=== PATIENT | male | born 1965 | race Caucasian/White ===

== ENCOUNTER → 2017-06-29 | Outpatient (CLI) | payer MEDICARE ==
--- NOTE | 2017-06-29 16:55 | Diagnostic Imaging Report ---
PROCEDURE: MRI lumbar spine. TECHNIQUE: Multiplanar, multisequence MRI of the lumbar spine was performed without contrast. INDICATION: Back pain. FINDINGS: There is minimal retrolisthesis of L5 over S1; otherwise, the alignment at the posterior spinal line is satisfactory. The vertebral body heights are preserved. There is moderate disc height loss at L5/S1. Mild disc height loss at L3/4 and L4/5 levels is also seen. The bone marrow signal is fairly homogeneous. Minimal edema adjacent to the endplates of L4/5 posteriorly is reactive to disc disease. There is disc desiccation at the lower lumbar spine levels. The cauda equina and conus medullaris appear grossly unremarkable. T11/12 demonstrates a diffuse disc bulge, asymmetric to the right side with no significant spinal canal stenosis. There is moderate foraminal stenosis on the right side at this level and no significant foraminal stenosis on the left. This is related to asymmetric right facet joint hypertrophy at this level. T12/L1: There is a diffuse disc bulge with no significant spinal canal or foraminal stenosis. L1/2: There is no disc herniation. There is mild facet hypertrophy. No central canal, lateral recess, or foraminal stenosis. L2/3: There is no disc herniation. There is vyxj-rb-novmdznm facet hypertrophy. No central canal or lateral recess stenosis. There is no foraminal narrowing. L3/4: There is mild disc bulge with caudal migration of superimposed protrusion posteriorly. There is bijr-be-dojquvny facet hypertrophy bilaterally. No significant central canal stenosis. There is, however, bilateral lateral recess stenosis, moderate on the left and mild on the right side. The foramina demonstrate mild stenosis bilaterally. L4/5: There is a diffuse disc bulge and bilateral zvaqtkgi-db-fcbdrx facet hypertrophy. No significant central canal stenosis. There is bilateral lateral recess stenosis of moderate degree bilaterally abutting the descending L5 nerve roots. The foramina demonstrate moderate stenosis on both sides. L5/S1: There is grade 1 retrolisthesis and prominent disc height loss at this level with a large broad-based left posterolateral disc protrusion that severely compresses the left lateral recess. There is minimal central canal stenosis at this level and meatcdcc-lv-jvhpzh right lateral recess stenosis. There is compression of the descending left S1 nerve root. The foramina demonstrate xrhqykkp-nd-nbvqxd stenosis on the left and moderate stenosis on the right side. IMPRESSION: There is a broad-based left posterolateral disc protrusion at L5/S1 compressing the descending left S1 nerve root within the left lateral recess. The right lateral recess demonstrates ilbqnsfu-rj-lhybry stenosis abutting the descending right S1 nerve root. Other findings as described above. Dictated by: Dictated on workstation # [id number]
== END ==
LOC: RAD 15:26
PROVIDERS: ATTEND Nurse Practitioner Family
DX: M48.07 Spinal stenosis, lumbosacral region; M51.17 Intervertebral disc disorders with radiculopathy, lumbosacral region
CPT/HCPCS: 72148

== ENCOUNTER → 2022-01-11 | Outpatient (CLI) | payer MEDICARE ==
[~2022-01-11] MED LIST: CATHETER FLUSH 10 ML SYR IV PRN; HOLD METFORMIN - RECEIVED CONTRAST 20 ML VIAL IV SCH; IOHEXOL 350 MG/ML 100 ML (OMNIPAQUE 350) VIAL IV ONE; MELO15TA14 PO; NS 100 ML (IVPB) BAG IV ONE; OXYC1TAB16 PO; PANT40SU PO; PRED10TA22 PO
--- NOTE | 2022-01-11 19:00 | Diagnostic Imaging Report ---
INDICATION: Carotid stenosis. COMPARISON: I have no relevant comparison. FINDINGS: The aortic arch patent and nonaneurysmal. The branching pattern of the great vessels was normal. Cervical vertebral arteries patent and codominant. The intradural vertebral arteries and the basilar and the visualized proximal steel wheel engraver unremarkable. There is focal soft and hard plaque in the left carotid bulb and bifurcation extending into the proximal left ICA where there is hemodynamically significant stenosis at the ICA origin of at least 80%. This disease a short segmental and beyond that level the left internal carotid is widely patent and nonfocal. Mixed soft and hard plaque result in moderate 50% stenosis of the proximal left external carotid. On the right side, there is only mild mixed soft and hard plaque at the carotid bulb and bifurcation without hemodynamically significant common, internal or external carotid stenosis. The visualized intracranial ICAs patent. The A1 segments, the ACOM, the proximal anterior cerebral arteries and the proximal middle cerebral arteries appeared well opacified and patent. IMPRESSION: 1. Hemodynamically significant likely at least 80% short segmental stenosis of the origin of the left internal carotid owing to soft and hard plaque. 2. More mild right-sided carotid atherosclerosis without stenosis. 3. Widely patent codominant vertebral basilar system. Dictated by: Dictated on workstation # [id number]
== END ==
LOC: CARD 13:36
PROVIDERS: ATTEND Internal Medicine Cardiovascular Disease
DX: I65.23 Occlusion and stenosis of bilateral carotid arteries (principal); I10 Essential (primary) hypertension; I25.10 Atherosclerotic heart disease of native coronary artery without angina pectoris
CPT/HCPCS: 70498; 93306

== ENCOUNTER → 2022-01-20 | Outpatient (CLI) | payer MEDICARE ==
[~2022-01-20] MED LIST changes: -CATHETER FLUSH 10 ML SYR IV PRN; +CATHETER FLUSH 10 ML SYR IVP PRN; -HOLD METFORMIN - RECEIVED CONTRAST 20 ML VIAL IV SCH; -IOHEXOL 350 MG/ML 100 ML (OMNIPAQUE 350) VIAL IV ONE; -NS 100 ML (IVPB) BAG IV ONE
[2022-01-20 13:17] VITALS: BP 127/63
--- NOTE | 2022-01-20 14:56 | Cardiology Stress Test Report ---
Stress Test Report Date of Procedure/Referring: Date of Procedure: Jan 20, 2022 PCP Francisco Quick MD Admitting Physician No,Local Physician Indications: CP Baseline Heart Rate: 83 Baseline Blood Pressure: Blood Pressure Systolic: 127 Blood Pressure Diastolic: 63 Vital Signs Date Time Temp Pulse Resp B/P (MAP) Pulse Ox O2 Delivery O2 Flow Rate FiO2 01/20/22 13:17 83 127/63 (84) Baseline Vital Signs Vital Signs Date Time Temp Pulse Resp B/P (MAP) Pulse Ox O2 Delivery O2 Flow Rate FiO2 01/20/22 13:17 83 127/63 (84) Baseline EKG: Baseline EKG: NSR Summary: After explaining the procedure and details to the patient, he signed the consent and was brought to the stress nuclear laboratory. Patient exercised on standard Anthony protocol, EKG, heart rate and blood pressure were monitored continuously, resting and stress doses of radio tracer were injected, imaging was acquired and reviewed in the short axis, horizontal long axis and vertical long axis views Patient was able to exercise for a total of 6 minutes on Anthony protocol, METs 7.1 Maximum heart rate 135 Maximum blood pressure 181/85 Stress EKG, Minimal nondiagnostic changes Recovery EKG, Return to baseline TID: 1.12 SSS: 25 SDS: 11 EF: 47 Conclusion: 1. Fair exercise tolerance for a total of 6 minutes on standard Anthony protocol, 7.1 METS achieving 83% of maximal expected heart rate 2. Baseline EKG abnormality with nonspecific T wave abnormality. Had nondiagnostic EKG changes with [address] depression in lead II, 3, aVF, [address] depression in V5, V6. 3. Reversible ischemia involving the whole inferior wall inferolateral wall inferolateral apex, true apex, anterior apex. 4. Normal left ventricular size with mild diffuse hypokinesia, ejection fraction 47% FRANCISCO QUICK MD Jan 20, 2022 14:56
== END ==
LOC: CARD 01-18 07:45
PROVIDERS: ATTEND Internal Medicine Cardiovascular Disease
DX: R07.9 Chest pain, unspecified (principal); I10 Essential (primary) hypertension
CPT/HCPCS: 78452; 93017; A9502

== ENCOUNTER 2022-02-03 09:00 | Day surgery (SDC) | payer MEDICARE ==
[2022-02-03] VITALS (10 sets, daily range): BP systolic 95–123; BP diastolic 60–81
[~2022-02-03] VITALS: Ht 162.6 cm; Wt 92.3 kg
[2022-02-03 07:34] LABS: HEMATOCRIT 43 % (40-54); HEMOGLOBIN 13.8 g/dL (13.3-17.7); MEAN CORPUSCULAR HEMOGLOBIN 31 pg (25-34); MEAN CORPUSCULAR HGB CONC 32 g/dL (32-36); MEAN CORPUSCULAR VOLUME 97 fL (80-99); MEAN PLATELET VOLUME 10.2 fL (9.0-12.2); PLATELET COUNT 321 10^3/uL (130-400); WHITE BLOOD COUNT 12.7 10^3/uL (4.3-11.0)
[2022-02-03 07:35] LABS: BILIRUBIN,URINE NEGATIVE (NEGATIVE); CLARITY,URINE CLEAR; COLOR,URINE YELLOW; GLUCOSE, URINE (UA) NEGATIVE (NEGATIVE); KETONES,URINE NEGATIVE (NEGATIVE); LEUKOCYTE ESTERASE ,URINE NEGATIVE (NEGATIVE); NITRITE,URINE NEGATIVE (NEGATIVE); PH,URINE 5.5 (5-9); PROTEIN,URINE NEGATIVE (NEGATIVE)
[2022-02-03 07:42] LABS: ALBUMIN 4.1 GM/DL (3.2-4.5); POTASSIUM 4.8 MMOL/L (3.6-5.0)
[2022-02-03 07:43] LABS: CALCIUM 9.8 MG/DL (8.5-10.1)
[2022-02-03 07:44] LABS: TOTAL PROTEIN 7.3 GM/DL (6.4-8.2)
--- NOTE | 2022-02-03 07:45 | Diagnostic Imaging Report ---
INDICATION: Respiratory distress. FINDINGS: Lungs are clear. No failure, effusion or pneumothorax. IMPRESSION: No acute appearing abnormality. Dictated by: Dictated on workstation # [id number]
[2022-02-03 07:46] LABS: BILIRUBIN,TOTAL 0.2 MG/DL (0.1-1.0); INR 0.9 (0.8-1.4); PROTHROMBIN TIME PATIENT 12.7 SEC (12.2-14.7)
[2022-02-03 07:48] LABS: CREATININE SERUM 0.81 MG/DL (0.60-1.30)
[2022-02-03 08:14] LABS: BACTERIA,URINE NEGATIVE /HPF; WBC,URINE RARE /HPF
[2022-02-03 08:15] LABS: AMORPHOUS SEDIMENT,UR FEW AMOR URATES /LPF
[~2022-02-03 09:00] MED LIST changes: +ATOR80TA76 PO; -CATHETER FLUSH 10 ML SYR IVP PRN; +CLN.1T PO; +EZET10TA49 PO; +FENO54TA PO; +GABA600T PO; +HEParin (CATH LAB) 2,000 ML IV ONE; +HYDR-3820 PO; +IBUP-1780 PO; +LIDOCAINE 1% INJ 20 ML VIAL ONE; +LISI40TA9 PO; +NS IV 1000 ML 1,000 ML IV SCH; +NS IV 1000 ML 1,000 ML ONE; +OMG1KC PO; +PANT40TA52 PO
[2022-02-03] MEDS ORDERED: MIDAZOLAM 5 MG/5 ML (VERSED) VIAL ONE (09:02)
[2022-02-03] MEDS ORDERED: NITRO DRIP 25000 MCG/D5W 250 ML IV ONE (09:02)
[2022-02-03] MEDS ORDERED: fentaNYL INJ 100 MCG/2 ML AMP ONE (09:02)
[2022-02-03] MEDS ORDERED: HEParin 1000 UNIT/ML (10ML VIAL) FOR BOLUS ONE (09:02)
[2022-02-03] MEDS ORDERED: VERAPAMIL 5 MG/2 ML (CALAN) VIAL IV ONE (09:02)
--- NOTE | 2022-02-03 09:27 | Discharge Inst-Post CATH ---
Discharge Inst-CATH/EP Problems Reviewed?: Yes Post Cardiac Cath/EP D/C Inst Follow Up/Plan Appointment with Dr. Quick's office in 1 month <b>CARDIAC CATH/EP PROCEDURE DISCHARGE INSTRUCTIONS</b> ACTIVITY * Go Home directly and rest. * Limit activity of the leg (or wrist if it was used) for 7 days including aerobics, swimming, jogging, bicycling, etc. * Restrict stair-climbing for 7 days if possible, if not, climb up with your non-cath leg, then bring together on the same step. * Avoid lifting, pushing, pulling or excessive movement of the affected extremity for 7 days. * Customary sexual activity may be resumed after 2 days-use caution not to use a position that strains or causes pain to the affected extremity. * No driving for 24 hours. * NO SMOKING. * Avoid straining for bowel movements for 7 days. * Gentle walking on level ground is allowed. * Returning to work will depend on the type of procedure and the results. Your doctor will discuss this with you. CALL YOUR DOCTOR FOR ANY OF THE FOLLOWING: *If bleeding from the puncture site occurs- Apply gentle pressure to site with clean cloth and call your doctor or EMS. * If a knot or lump forms under the skin, increases in size, or causes pain. * If bruising appears to be worsening or moving further down your leg instead of disappearing. * Temperature above 101 F. CARE OF YOUR GROIN INCISION; * Bruising or purple discoloration of the skin near the puncture site is common. * You may shower only, no bathtub bathing for 5 days. Be careful to avoid slipping as your leg may feel stiff. * If a closure device was used on your femoral artery, please see the attached guide regarding care of the device and your leg. * Leave dressing on FOR 24 hours. CARE OF YOUR WRIST INCISION; * Bruising or purple discoloration of the skin near the puncture site is common. * You may shower. * DO NOT submerge wrist. * Leave dressing on FOR 24 hours. FRANCISCO QUICK MD February 03, 2022 09:27
[2022-02-03] MEDS ORDERED: NS IV 1000 ML 1,000 ML IV SCH (09:30)
--- NOTE | 2022-02-03 09:33 | Cardiac Cath Report ---
Cardiac Cath Report Physician (s)/Material Coordinator (s) Physician FRANCISCO FREIRE MD Pre-Procedure Diagnosis Pre-Procedure Diagnosis: Coronary artery disease, aortic valve stenosis Post-Procedure Note Procedure Start Date: February 03, 2022 Name of Procedure: Coronary angiogram Aortic arch angiogram Findings/Procedure Note PROCEDURE NOTE: 56-year-old gentleman with severe aortic valve stenosis, probably bicuspid aortic valve. Had an abnormal stress test, scheduled for cardiac catheterization possible PTCA. After explaining the procedure to the patient, all pros and cons were explained, all questions were answered. The patient signed the consent and then he was placed on the cardiac catheterization laboratory. Groin was prepped SL fashion local anesthesia was used. Sheath placed in the right radial artery, [place] catheter was advanced to the coronary system and engage the right and left coronary artery, angiogram was done. Then pulled to the aortic arch. An aortic arch angiogram was done At the end of the procedure the sheath was removed. Vascular band was used FINDINGS: Hemodynamics LV was not measured, aortic valve was not crossed Aorta 79/51 mean of 67 ANATOMY: Left Main is free of obstructive disease Left Anterior Descending has diffuse ectasia with mild to moderate disease Left Circumflex has diffuse ectasia with mild disease Right Coronary Artery is nondominant artery with severe stenosis in 2 segment in the mid right coronary artery Aorta evaluation done with aortic arch angiogram showing normal aortic arch in size, no dissection or aneurysm, normal origin of the brachiocephalic artery, left carotid and left subclavian arteries. CONCLUSION: 1. Severe stenosis in small to moderate size nondominant right coronary artery at 2 segments. 2. Diffuse coronary ectasia with mild to moderate disease in the left coronary system. 3. Normal aortic arch with no significant abnormality 4. Patient is known to have severe aortic valve stenosis DISCUSSION AND RECOMMENDATION: I will discuss with the patient and the thoracic surgeon regarding possibility of stenting of the right coronary artery versus performing bypass surgery and aortic valve replacement at the same time. Anesthesia Type: Conscious Sedation Estimated blood loss (mL): 10 ml Contrast Amount: 50 ml Total Radiation Dose: 417 mGy Post-Procedure Diagnosis Post-operative diagnosis: Aortic valve stenosis Coronary artery disease Hypertension Hyperlipidemia FRANCISCO FREIRE MD February 03, 2022 09:32
--- NOTE | 2022-02-03 09:44 | Conscious Sedation/ASA ---
Conscious Sedation Pre-Proced Time 09:43 ASA Score 3 For ASA 3 and 4: Consider anesthesia and medical clearance. Also, for patients with a history of failed moderate sedation consider anesthesia. Airway Lungs Heart ASA score ASA 1: a normal healthy patient ASA 2: a patient with a mild systemic disease (mid diabetes, controlled hypertension, obesity x ASA 3: a patient with a severe systemic disease that limits activity (angina, COPD, prior Myocardial infarction) ASA 4: a patient with an incapacitating disease that is a constant threat to life (CHF, renal failure) ASA 5: a moribund patient not expected to survive 24 hrs. (ruptured aneurysm) ASA 6: a declared brain- patient whose organs are being harvested. For emergent operations, add the letter E after the classification Mallampati Classification Grade 3 Sedation Plan Analgesia, Amnesia, Plan communicated to team members, Discussed options with patient/fam, Discussed risks with patient/fam The patient is an appropriate candidate to undergo the planned procedure, sedation, and anesthesia. The patient immediately re-assessed prior to indication. FRANCISCO FREIRE MD February 03, 2022 09:44
== END 2022-02-03 12:05 | disposition home or self-care (01) ==
LOC: CATH 09:00 → SDC 09:42 → CATH 12:05
PROVIDERS: ATTEND Internal Medicine Cardiovascular Disease
DX: I25.10 Atherosclerotic heart disease of native coronary artery without angina pectoris (principal); I35.0 Nonrheumatic aortic (valve) stenosis; I11.9 Hypertensive heart disease without heart failure; I65.23 Occlusion and stenosis of bilateral carotid arteries; E78.2 Mixed hyperlipidemia; E78.5 Hyperlipidemia, unspecified; M62.89 Other specified disorders of muscle; M25.50 Pain in unspecified joint; F17.210 Nicotine dependence, cigarettes, uncomplicated; Z79.899 Other long term (current) drug therapy
CPT/HCPCS: 36221; 71045; 80053; 80061; 81000; 85027; 85610; 85730; 87081; 93005; 93454; C1894; 36415

== ENCOUNTER → 2022-02-24 | Outpatient (CLI) | payer MEDICARE ==
[~2022-02-24] MED LIST changes: -HEParin (CATH LAB) 2,000 ML IV ONE; -LIDOCAINE 1% INJ 20 ML VIAL ONE; -NS IV 1000 ML 1,000 ML IV SCH; -NS IV 1000 ML 1,000 ML ONE; +RT-ALBUTEROL SULF 2.5 MG/3 ML PRE-MIX VIAL INH ONE
[2022-02-24 09:34] LABS: ABG OXYGEN SATURATION 96 % (94-100); ABG PCO2 47 MMHG (35-45); ABG PH 7.35 (7.37-7.43); ABG PO2 79 MMHG (79-93); ABG TCO2 26.4 MMOL/L (21.0-31.0)
[2022-02-24 09:36] LABS: ALLENS TEST YES-POS; INSPIRED O2 RA; PATIENT TEMP 98.7; VENTILATOR NO
== END ==
LOC: RT 09:15
PROVIDERS: ATTEND Nurse Practitioner
DX: Z01.810 Encounter for preprocedural cardiovascular examination (principal); I65.23 Occlusion and stenosis of bilateral carotid arteries; I35.0 Nonrheumatic aortic (valve) stenosis; I25.10 Atherosclerotic heart disease of native coronary artery without angina pectoris
CPT/HCPCS: 36600; 82805; 94060; 94621; 94726; 94729

== ENCOUNTER 2022-03-30 14:21 | Emergency (ER) | payer MEDICARE ==
[~2022-03-30 14:21] MED LIST changes: -RT-ALBUTEROL SULF 2.5 MG/3 ML PRE-MIX VIAL INH ONE
[2022-03-30] MEDS ORDERED: ORPHENADRINE 60 MG/2 ML (NORFLEX) AMP (ED ONLY) IM ONE (15:00)
[2022-03-30] MEDS ORDERED: fentaNYL INJ 100 MCG/2 ML AMP IM ONE (15:00)
--- NOTE | 2022-03-30 15:01 | ED Back Pain ---
General Chief Complaint: Back Problems Stated Complaint: R LEG PAIN Nursing Triage Note: PT AMB TO [facility] 5 WITH C/O LOW BACK PAIN THAT RADIATES TO HIS R LEG FOR APPROX 1 WEEK NOW Source of Information: Patient Exam Limitations: No Limitations History of Present Illness Date Seen by Provider: Mar 30, 2022 Time Seen by Provider: 15:01 Allergies and Home Medications Allergies Coded Allergies: No Known Drug Allergies (Unverified , 12/31/21) Patient Home Medication List Atorvastatin Calcium (Atorvastatin Calcium) 80 Mg Tablet, 80 MG PO DAILY, (Reported) Entered as Reported by: SANGEETA LAI on 02/03/22842 Clonidine HCl (Clonidine HCl) 0.1 Mg Tablet, 0.1 MG PO DAILY PRN for BLOOD PRESSURE, (Reported) Entered as Reported by: SANGEETA LAI on 02/03/22842 Ezetimibe (Ezetimibe) 10 Mg Tablet, 10 MG PO DAILY, (Reported) Entered as Reported by: SANGEETA LAI on 02/03/22842 Fenofibrate (Fenofibrate) 54 Mg Tablet, 54 MG PO DAILY, (Reported) Entered as Reported by: SANGEETA LAI on 02/03/22842 Gabapentin (Neurontin) 600 Mg Tablet, 1,800 MG PO TID, (Reported) Entered as Reported by: SANGEETA LAI on 02/03/22842 Hydrocodone/Acetaminophen (Hydrocodone-Acetamin 10-325 mg) 10 Mg-325 Mg Tablet, 1 EACH PO TID PRN for PAIN-MODERATE (5-7), (Reported) Entered as Reported by: SANGEETA ALI on 02/03/22842 Ibuprofen (Ibuprofen) 800 Mg Tablet, 800 MG PO Q8H PRN for PAIN-MILD, (Reported) Entered as Reported by: SANGEETA LAI on 02/03/22842 Lisinopril (Lisinopril) 40 Mg Tablet, 40 MG PO DAILY, (Reported) Entered as Reported by: SANGEETA LAI on 02/03/22842 Viking 3 Polyunsat Fatty Acids (Fish Oil 1,000 mg Capsule) 340 Mg-1,000 Mg Cap, 1,000 MG PO DAILY, (Reported) Entered as Reported by: SANGEETA LAI on 02/03/22842 Oxycodone HCl/Acetaminophen (Percocet 7.5-325 mg Tablet) 1 Each Tablet, 1 TAB PO Q6H PRN for PAIN-MODERATE Prescribed by: MARCIN URIOSTEGUI on 12/31/21 1705 Pantoprazole Sodium (Pantoprazole Sodium) 40 Mg Tablet.dr, 40 MG PO DAILY PRN for GI UPSET, (Reported) Entered as Reported by: SANGEETA LAI on 02/03/22 0800 Past Mlobybi-Pyaznb-Xtnbpw Hx Patient Social History Tobacco Use?: Yes Tobacco type used: Cigarettes Smoking Status: Current Everyday Smoker Substance use?: No Alcohol Use?: No Pt feels they are or have been: No Immunizations Up To Date Influenza Vaccine Up-to-Date: No; Not Current Past Medical History Surgery/Hospitalization HX: HTN, Orthopedic High Cholesterol, Hypertension, Irregular Heartbeat Physical Exam Vital Signs Vital Signs - First Documented 03/30/22 14:40 Temp 36.8 Pulse 80 Resp 20 B/P (MAP) 139/81 (100) Capillary Refill : Height, Weight, BMI Height: '" Weight: lbs. oz. kg; 34.91 BMI Method: Progress/Results/Core Measures Results/Orders My Orders Orders - LUIS MANUEL [facility] Fentanyl Inj (Sublimaze Injection) (03/30/22 15:00) Orphenadrine Inj (Ed Only) (Norflex Inje (03/30/22 15:00) Hydromorphone Injection (Dilaudid Inject (03/30/22 15:45) Prednisone Tablet (Deltasone Tablet) (03/30/22 15:45) Medications Given in ED Current Medications Medications Dose Ordered Sig/Cristina Route Start Time Stop Time Status Last Admin Dose Admin Fentanyl Citrate 50 mcg ONCE ONCE IM 03/30/22 15:00 03/30/22 15:01 DC 03/30/22 15:06 50 MCG Hydromorphone HCl 1 mg ONCE ONCE IV 03/30/22 15:45 03/30/22 15:46 DC 03/30/22 15:47 1 MG Orphenadrine Citrate 60 mg ONCE ONCE IM 03/30/22 15:00 03/30/22 15:01 DC 03/30/22 15:06 60 MG Prednisone 40 mg ONCE ONCE PO 03/30/22 15:45 03/30/22 15:46 DC 03/30/22 15:46 40 MG Vital Signs/I&O 03/30/22 14:40 Temp 36.8 Pulse 80 Resp 20 B/P (MAP) 139/81 (100) Blood Pressure Mean: 100 Departure Impression Primary Impression: Sciatic nerve pain Disposition: 01 HOME, SELF-CARE Condition: Improved Departure-Patient Inst. Decision time for Depature: 15:54 Referrals: NO,LOCAL PHYSICIAN (PCP/Family) Primary Care Physician Patient Instructions: Acute Pain, Adult (DC) Add. Discharge Instructions: Plan: 1. Take steroid daily as directed and complete full course. 2. Have close follow up with your primary care provider. 3. Avoid heavy lifting, bending, twisting. Return if symptoms worsen. 4. Return for any new, concerning, or worsening symptoms. All discharge instructions reviewed with patient and/or family. Voiced understanding. Scripts Prednisone (Prednisone) 20 Mg Tab 40 MG PO DAILY for 4 Days, #8 TAB 0 Refills Prov: LUIS MANUEL [facility] 03/30/22 LUIS MANUEL [facility] Mar 30, 2022 15:01
[2022-03-30] MEDS ORDERED: HYDROmorphone 2 MG/ML VIAL (DILAUDID) IV ONE (15:45)
[2022-03-30] MEDS ORDERED: predniSONE 20 MG TAB PO ONE (15:45)
[2022-03-30] MEDS ORDERED: PRD20T PO (15:56)
[2022-03-30 16:25] VITALS: BP 136/74
== END 2022-03-30 16:26 | disposition home or self-care (01) ==
LOC: EDUNIT# 14:21 → ER 14:22
DX: M54.41 Lumbago with sciatica, right side (principal); F17.210 Nicotine dependence, cigarettes, uncomplicated